=== PATIENT | female | born 1995 | race Caucasian/White ===

== ENCOUNTER 2019-02-25 11:32 | Emergency (ER) | payer MEDICAID ==
[~2019-02-25] VITALS: Ht 170.2 cm; Wt 90.9 kg
[2019-02-25] MEDS ORDERED: SERT50TA12 PO (11:40)
[2019-02-25] MEDS ORDERED: TRAZ-252 PO (11:40)
[2019-02-25 12:25] VITALS: BP 119/71
[2019-02-25] MEDS ORDERED: ACETAMINOPHEN 500 MG TABLET PO ONE (12:45)
== END 2019-02-25 13:22 | disposition home or self-care (01) ==
LOC: EMS 11:33
DX: S06.0X0A Concussion without loss of consciousness, initial encounter (principal); M25.511 Pain in right shoulder; M25.551 Pain in right hip; F41.9 Anxiety disorder, unspecified; F32.9 Major depressive disorder, single episode, unspecified; W01.0XXA Fall on same level from slipping, tripping and stumbling without subsequent striking against object, initial encounter; Y93.89 Activity, other specified; Y92.098 Other place in other non-institutional residence as the place of occurrence of the external cause; Y99.8 Other external cause status

== ENCOUNTER 2019-08-07 18:30 | Inpatient (IN) | payer MEDICAID ==
[~2019-08-07] VITALS: Ht 170.2 cm; Wt 97.0 kg
[~2019-08-07 18:30] MED LIST: SERT50TA12 PO; TRAZ-252 PO
[2019-08-07] MEDS ORDERED: ACETAMINOPHEN 325 MG TABLET PO ONE (18:45)
[2019-08-07] MEDS ORDERED: SODIUM CHLORIDE 0.9% 2,000 ML IV ONE (19:00)
[2019-08-07 19:15] LABS: HEMATOCRIT 33.6 % (36-46); HEMOGLOBIN 11.4 g/dL (12.0-16.0); MEAN CORPUSCULAR HGB CONC 33.8 G/dL (31.0-37.0); MEAN CORPUSCULAR VOLUME 89 fL (80-100); PLATELET COUNT (AUTO) 334 K/uL (150-450); RED BLOOD CELL COUNT(AUTO) 3.79 MIL/uL (4.00-5.20); RED CELL DISTRIBUTION WIDTH 13.6 % (11.5-14.5)
[2019-08-07] MEDS ORDERED: CefTRIAXone 1 GM/DEXTROSE 50 ML IV ONE (19:30)
[2019-08-07] MEDS ORDERED: AZITHROMYCIN 500 MG/NS 250 ML IV ONE (19:30)
[2019-08-07] MEDS ORDERED: VANCOMYCIN HCL 1.5 GM in DEXTROSE 5%-WATER 250 ML IV ONE (19:30)
[2019-08-07] MEDS ORDERED: IOVERSOL 350 MG/ML 100 ML VIAL ONE (19:35)
[2019-08-07] MEDS ORDERED: SODIUM CHLORIDE 0.9% 100 ML ONE (19:35)
[2019-08-07 19:36] LABS: INR 1.1 (0.9-1.1); PROTHROMBIN TIME 11.4 SEC (9.4-11.6)
[2019-08-07 19:37] LABS: INFLUENZA TYPE A NEGATIVE FOR TYPE A (NEGATIVE); INFLUENZA TYPE B NEGATIVE FOR TYPE B (NEGATIVE)
[2019-08-07 19:38] LABS: ANION GAP 11 mmol/L (8-16); CALCIUM, TOTAL 9.2 mg/dL (8.8-10.5); CARBON DIOXIDE 24 mmol/L (22-29); CHLORIDE 100 mmol/L (98-107); CREATININE 0.87 mg/dL (0.60-1.30); GLOMERULAR FILTR. RATE CALC > 60 mL/min (>60); GLUCOSE,RANDOM 121 mg/dL (70-110); POTASSIUM 3.2 mmol/L (3.5-5.1); SODIUM SERUM 135 mmol/L (136-145); UREA NITROGEN, BLOOD 9 mg/dL (7-18)
[2019-08-07 19:57] LABS: BAND NEUTROPHILS % (MANUAL) 7 % (0-5); LYMPHOCYTES % (MANUAL) 3 % (22-44); MONOCYTES % (MANUAL) 3 % (2-9); SEGMENTED NEUTROPHILS % 87 % (40-70)
[2019-08-07] MEDS ORDERED: 0.9% SODIUM CHLORIDE 10 ML SYRINGE IVP PRN (20:00)
[2019-08-07] MEDS ORDERED: ONDANSETRON HCL 4 MG/2 ML VIAL IVP PRN ×2 (20:00→21:45)
[2019-08-07] MEDS ORDERED: ACETAMINOPHEN 325 MG TABLET PO PRN (20:00)
[2019-08-07 20:02] LABS: ALANINE AMINOTRANSFERASE 105 U/L (12-78); ALBUMIN 3.3 g/dL (3.4-5.0); ALKALINE PHOSPHATASE 177 U/L (46-116); ASPARTATE AMINOTRANSFERASE 83 U/L (15-37); BILIRUBIN,TOTAL 2.7 mg/dL (0.1-1.0); CREATINE KINASE, TOTAL ONLY 450 U/L (26-192); HCG,QUANTITATIVE < 1 mIU/mL (0-6); THYROID STIMULATING HORMONE 0.33 uIU/mL (0.36-3.74); TOTAL PROTEIN, SERUM 8.1 g/dL (6.4-8.2)
[2019-08-07] MEDS ORDERED: MethylPREDNISolone SOD SUCC 125 MG/2 ML VIAL IVP ONE (21:00)
[2019-08-07] MEDS ORDERED: SODIUM CHLORIDE 0.9% 2,750 ML IV ONE (21:00)
[2019-08-07] MEDS ORDERED: BISACODYL 10 MG RECTAL RECTAL SUPPOSITORY PR PRN (21:45)
[2019-08-07] MEDS ORDERED: IPRATROPIUM BROMIDE 0.5 MG/2.5 ML NEB SOLUTION NEB PRN ×2 (21:45)
[2019-08-07] MEDS ORDERED: ALBUTEROL SULFATE 2.5 MG/0.5 ML NEB SOLUTION NEB PRN ×2 (21:45)
[2019-08-07] MEDS ORDERED: LEVOFLOXACIN 750 MG/D5% WATER 150 ML IV SCH (21:45)
[2019-08-07] MEDS ORDERED: MAGNESIUM HYDROXIDE SUSPENSION 30 ML UDCUP PO PRN (21:45)
[2019-08-07] MEDS ORDERED: SODIUM CHLORIDE 0.9% 1,000 ML IV ONE (21:45)
[2019-08-07] MEDS ORDERED: MORPHINE SULFATE 2 MG/ML SYRINGE IVP PRN (21:45)
[2019-08-07] MEDS ORDERED: POTASSIUM CHL 10 MEQ/WATER 50 ML IV PRN (23:15)
[2019-08-07] MEDS: POTASSIUM CHLORIDE 20 MEQ ER TABLET PO PRN (23:54)
[2019-08-08] VITALS (7 sets, daily range): BP systolic 105–135; BP diastolic 50–78
[2019-08-08] MEDS: ACETAMINOPHEN 325 MG TABLET PO PRN ×4 (00:05→21:17)
[2019-08-08] MEDS: MethylPREDNISolone SOD SUCC 125 MG/2 ML VIAL IVP SCH ×3 (00:05→11:03)
[2019-08-08] MEDS ORDERED: PNEUMOCOCCAL VACCINE POLYVALENT 0.5 ML VIAL [PPSV23] IM ONE (01:45)
[2019-08-08] MEDS ORDERED: INFLUENZA VIRUS VACCINE QVS 2019-20 (3YR+)/PF 60 MCG/0.5 ML SYRINGE IM ONE (01:45)
[2019-08-08] MEDS: IPRATROPIUM BROMIDE 0.5 MG/2.5 ML NEB SOLUTION NEB SCH ×4 (02:00→20:24)
[2019-08-08] MEDS: ALBUTEROL SULFATE 2.5 MG/0.5 ML NEB SOLUTION NEB SCH ×4 (02:00→20:23)
[2019-08-08] MEDS: LEVOFLOXACIN 750 MG/D5% WATER 150 ML IV SCH ×2 (02:07→23:53)
[2019-08-08 05:11] LABS: APPEARANCE,URINE CLEAR (CLEAR); GLUCOSE, URINE (UA) NEGATIVE (NEGATIVE); KETONES,URINE 15 mg/dL (NEGATIVE); LEUKOCYTE ESTERASE ,URINE NEGATIVE (NEGATIVE); NITRATE,URINE NEGATIVE (NEGATIVE); OCCULT BLOOD,URINE SMALL (NEGATIVE); PROTEIN,URINE POS 1+ (NEGATIVE); UROBILINOGEN,URINE >=8.0 mg/dL (<=1.0)
[2019-08-08 05:14] LABS: BILIRUBIN,URINE PRELIM. POSITIVE (NEGATIVE)
[2019-08-08 05:16] LABS: AMPHET/METH SCREEN,URINE NEGATIVE (NEGATIVE); BARBITURATE SCREEN, URINE NEGATIVE (NEGATIVE); BENZODIAZEPINES SCREEN,URINE NEGATIVE (NEGATIVE); CANNABINOID SCREEN,URINE POSITIVE (NEGATIVE); COCAINE SCREEN,URINE NEGATIVE (NEGATIVE); METHADONE SCREEN, URINE NEGATIVE (NEGATIVE); OPIATE SCREEN,URINE POSITIVE (NEGATIVE)
[2019-08-08 05:17] LABS: PHENCYCLIDINE SCREEN,URINE NEGATIVE (NEGATIVE)
[2019-08-08 05:25] LABS: BACTERIA,URINE None Seen /HPF (None Seen); RBC,URINE 0-2 /HPF (0-2); SQUAMOUS EPITHELIAL CELL,UR Few /LPF (None Seen); WBC,URINE None Seen /HPF (0-5)
[2019-08-08 06:10] LABS: BASOPHILS % (AUTO) 0.2 % (0.0-2.0); EOSINOPHILS % (AUTO) 0 % (1.0-6.0); HEMATOCRIT 30.9 % (36-46); HEMOGLOBIN 10.4 g/dL (12.0-16.0); LYMPHOCYTES # (AUTO) 0.6 K/uL (1.0-4.8); LYMPHOCYTES % (AUTO) 4.2 % (22.0-44.0); MEAN CORPUSCULAR HEMOGLOBIN 29.7 pg (26.0-34.0); MEAN CORPUSCULAR HGB CONC 33.8 G/dL (31.0-37.0); MEAN CORPUSCULAR VOLUME 88 fL (80-100); MONOCYTES # (AUTO) 0.1 K/uL (0.1-1.0); MONOCYTES % (AUTO) 0.9 % (2.0-9.0); NEUTROPHILS # (AUTO) 12.9 K/uL (1.8-7.7); PLATELET COUNT (AUTO) 281 K/uL (150-450); RED BLOOD CELL COUNT(AUTO) 3.51 MIL/uL (4.00-5.20); RED CELL DISTRIBUTION WIDTH 13.3 % (11.5-14.5)
[2019-08-08 06:16] LABS: NEUTROPHILS % (AUTO) 94.7 % (40.0-70.0)
[2019-08-08 07:18] LABS: ALANINE AMINOTRANSFERASE 90 U/L (12-78); ALBUMIN 2.5 g/dL (3.4-5.0); ALKALINE PHOSPHATASE 148 U/L (46-116); ANION GAP 12 mmol/L (8-16); ASPARTATE AMINOTRANSFERASE 66 U/L (15-37); BILIRUBIN,TOTAL 1.4 mg/dL (0.1-1.0); CARBON DIOXIDE 24 mmol/L (22-29); CHLORIDE 103 mmol/L (98-107); CREATININE 0.68 mg/dL (0.60-1.30); GLOMERULAR FILTR. RATE CALC > 60 mL/min (>60); GLUCOSE,RANDOM 132 mg/dL (70-110); POTASSIUM 3.7 mmol/L (3.5-5.1); SODIUM SERUM 139 mmol/L (136-145); TOTAL PROTEIN, SERUM 7.9 g/dL (6.4-8.2); UREA NITROGEN, BLOOD 7 mg/dL (7-18)
[2019-08-08] MEDS: DOCUSATE SODIUM 100 MG CAPSULE PO SCH ×2 (07:58→21:17)
[2019-08-08] MEDS: BENZONATATE 100 MG CAPSULE PO SCH ×3 (07:58→21:17)
[2019-08-08] MEDS: HEPARIN SODIUM,PORCINE 5,000 UNITS/ML VIAL SQ SCH ×4 (07:58→23:53)
[2019-08-08] MEDS: PANTOPRAZOLE SODIUM 40 MG DR TABLET PO SCH (07:58)
[2019-08-08] MEDS: GuaiFENesin SR 600 MG ER TABLET PO SCH ×2 (07:58→21:17)
[2019-08-08] MEDS: HYDROCODONE/ACETAMINOPHEN 5-325 MG TABLET PO PRN ×2 (11:04→17:56)
[2019-08-08 13:36] LABS: ABG A-A DIFF O2 49.4 mmHg (10-20.0); ABG BASE EXCESS -2.2 mmol/L (-2.0-3.0); ABG CARBOXYHEMOGLOBIN 0.4 % (0.0-3.0); ABG METHEMOGLOBIN 0.3 % (0.0-1.5); ABG OXYGEN CONTENT 15.5 mL/dL (15.0-23.0); ABG OXYGEN SATURATION 91.8 % (95.0-98.0); ABG OXYHEMOGLOBIN 91.2 % (94.0-100.0); ABG PCO2 33 mmHg (35-45); ABG PH 7.439 (7.350-7.450); ABG TOTAL HEMOGLOBIN 12.1 G/dL (12.0-18.0); PO2, ARTERIAL BG 60.7 mmHg (80.0-100.0); SOURCE, BLOOD GAS ARTERIAL; TEMPERATURE, FAHRENHEIT, BG 98.6 FAHREN (96.0-98.6)
[2019-08-08 13:37] LABS: O2 DEVICE,BLOOD GAS ROOM AIR (ROOM AIR); SITE, BLOOD GAS RT RADIAL
[2019-08-08] MEDS ORDERED: 0.9% SODIUM CHLORIDE 5 ML NEB SOLUTION NEB ONE (20:13)
[2019-08-08] MEDS: MethylPREDNISolone SOD SUCC 40 MG/ML VIAL IVP SCH (21:17)
[2019-08-08] MEDS ORDERED: SODIUM CHLORIDE 0.9% 500 ML IV ONE (23:51)
[2019-08-09] MEDS: ALBUTEROL SULFATE 2.5 MG/0.5 ML NEB SOLUTION NEB SCH ×4 (02:01→20:22)
[2019-08-09] MEDS: IPRATROPIUM BROMIDE 0.5 MG/2.5 ML NEB SOLUTION NEB SCH ×4 (02:01→20:22)
[2019-08-09] MEDS: ACETAMINOPHEN 325 MG TABLET PO PRN (02:40)
[2019-08-09 04:04] VITALS: BP 129/75
[2019-08-09 06:52] LABS: BASOPHILS % (AUTO) 0.1 % (0.0-2.0); EOSINOPHILS % (AUTO) 0 % (1.0-6.0); HEMATOCRIT 31.6 % (36-46); HEMOGLOBIN 10.6 g/dL (12.0-16.0); LYMPHOCYTES # (AUTO) 1.1 K/uL (1.0-4.8); LYMPHOCYTES % (AUTO) 7.3 % (22.0-44.0); MEAN CORPUSCULAR HEMOGLOBIN 29.6 pg (26.0-34.0); MEAN CORPUSCULAR HGB CONC 33.5 G/dL (31.0-37.0); MEAN CORPUSCULAR VOLUME 89 fL (80-100); MONOCYTES # (AUTO) 0.3 K/uL (0.1-1.0); MONOCYTES % (AUTO) 2.1 % (2.0-9.0); NEUTROPHILS # (AUTO) 13.6 K/uL (1.8-7.7); NEUTROPHILS % (AUTO) 90.5 % (40.0-70.0); PLATELET COUNT (AUTO) 304 K/uL (150-450); RED BLOOD CELL COUNT(AUTO) 3.57 MIL/uL (4.00-5.20); RED CELL DISTRIBUTION WIDTH 13.3 % (11.5-14.5)
[2019-08-09 07:00] LABS: ANION GAP 12 mmol/L (8-16); CALCIUM, TOTAL 9.2 mg/dL (8.8-10.5); CARBON DIOXIDE 24 mmol/L (22-29); CHLORIDE 104 mmol/L (98-107); CREATININE 0.72 mg/dL (0.60-1.30); GLOMERULAR FILTR. RATE CALC > 60 mL/min (>60); GLUCOSE,RANDOM 126 mg/dL (70-110); POTASSIUM 3.3 mmol/L (3.5-5.1); SODIUM SERUM 140 mmol/L (136-145); UREA NITROGEN, BLOOD 12 mg/dL (7-18)
[2019-08-09 07:40] VITALS: BP 123/70
[2019-08-09] MEDS: PANTOPRAZOLE SODIUM 40 MG DR TABLET PO SCH (08:54)
[2019-08-09] MEDS: DOCUSATE SODIUM 100 MG CAPSULE PO SCH ×2 (08:55→20:25)
[2019-08-09] MEDS: MethylPREDNISolone SOD SUCC 40 MG/ML VIAL IVP SCH ×2 (08:55→20:08)
[2019-08-09] MEDS: HYDROCODONE/ACETAMINOPHEN 5-325 MG TABLET PO PRN ×3 (08:55→21:13)
[2019-08-09] MEDS: HEPARIN SODIUM,PORCINE 5,000 UNITS/ML VIAL SQ SCH ×2 (08:55→17:46)
[2019-08-09] MEDS: BENZONATATE 100 MG CAPSULE PO SCH ×3 (08:55→20:08)
[2019-08-09] MEDS: GuaiFENesin SR 600 MG ER TABLET PO SCH ×2 (08:55→21:11)
[2019-08-09 09:55] VITALS: BP 137/88
[2019-08-09 15:28] VITALS: BP 115/69
[2019-08-09] MEDS: POTASSIUM CHLORIDE 20 MEQ ER TABLET PO PRN (17:47)
[2019-08-09 19:54] VITALS: BP 98/61
[2019-08-09] MEDS: ZOLPIDEM TARTRATE 5 MG TABLET PO PRN (20:08)
[2019-08-10] VITALS (7 sets, daily range): BP systolic 112–149; BP diastolic 63–83
[2019-08-10] MEDS ORDERED: SODIUM CHLORIDE 0.9% 250 ML IV ONE (00:04)
[2019-08-10] MEDS: HEPARIN SODIUM,PORCINE 5,000 UNITS/ML VIAL SQ SCH ×4 (00:19→23:26)
[2019-08-10] MEDS: LEVOFLOXACIN 750 MG/D5% WATER 150 ML IV SCH ×2 (00:19→23:27)
[2019-08-10] MEDS: HYDROCODONE/ACETAMINOPHEN 5-325 MG TABLET PO PRN ×5 (02:27→23:27)
[2019-08-10] MEDS: IPRATROPIUM BROMIDE 0.5 MG/2.5 ML NEB SOLUTION NEB SCH ×5 (02:39→22:40)
[2019-08-10] MEDS: ALBUTEROL SULFATE 2.5 MG/0.5 ML NEB SOLUTION NEB SCH ×5 (02:39→22:40)
[2019-08-10 05:45] LABS: BASOPHILS % (AUTO) 0.1 % (0.0-2.0); EOSINOPHILS % (AUTO) 0 % (1.0-6.0); HEMATOCRIT 31.9 % (36-46); HEMOGLOBIN 10.5 g/dL (12.0-16.0); LYMPHOCYTES # (AUTO) 1.3 K/uL (1.0-4.8); LYMPHOCYTES % (AUTO) 13.9 % (22.0-44.0); MEAN CORPUSCULAR HEMOGLOBIN 29.2 pg (26.0-34.0); MEAN CORPUSCULAR HGB CONC 32.9 G/dL (31.0-37.0); MEAN CORPUSCULAR VOLUME 89 fL (80-100); MONOCYTES # (AUTO) 0.3 K/uL (0.1-1.0); NEUTROPHILS # (AUTO) 7.8 K/uL (1.8-7.7); PLATELET COUNT (AUTO) 289 K/uL (150-450); RED CELL DISTRIBUTION WIDTH 13.5 % (11.5-14.5)
[2019-08-10 05:55] LABS: ANION GAP 8 mmol/L (8-16); CARBON DIOXIDE 27 mmol/L (22-29); CHLORIDE 103 mmol/L (98-107); CREATININE 0.66 mg/dL (0.60-1.30); GLOMERULAR FILTR. RATE CALC > 60 mL/min (>60); GLUCOSE,RANDOM 107 mg/dL (70-110); SODIUM SERUM 138 mmol/L (136-145); UREA NITROGEN, BLOOD 13 mg/dL (7-18)
[2019-08-10] MEDS: MethylPREDNISolone SOD SUCC 40 MG/ML VIAL IVP SCH ×2 (08:11→20:10)
[2019-08-10] MEDS: DOCUSATE SODIUM 100 MG CAPSULE PO SCH ×2 (08:12→20:10)
[2019-08-10] MEDS: GuaiFENesin SR 600 MG ER TABLET PO SCH ×2 (08:12→20:10)
[2019-08-10] MEDS: BENZONATATE 100 MG CAPSULE PO SCH ×3 (08:12→20:10)
[2019-08-10] MEDS: PANTOPRAZOLE SODIUM 40 MG DR TABLET PO SCH (08:12)
[2019-08-10] MEDS: ZOLPIDEM TARTRATE 5 MG TABLET PO PRN (23:27)
[2019-08-11] MEDS: IPRATROPIUM BROMIDE 0.5 MG/2.5 ML NEB SOLUTION NEB SCH ×6 (03:00→23:45)
[2019-08-11] MEDS: ALBUTEROL SULFATE 2.5 MG/0.5 ML NEB SOLUTION NEB SCH ×6 (03:00→23:45)
[2019-08-11 05:04] VITALS: BP 136/81
[2019-08-11 05:35] LABS: BASOPHILS % (AUTO) 0.1 % (0.0-2.0); EOSINOPHILS % (AUTO) 0 % (1.0-6.0); HEMATOCRIT 33.4 % (36-46); HEMOGLOBIN 11.2 g/dL (12.0-16.0); LYMPHOCYTES % (AUTO) 12.3 % (22.0-44.0); MEAN CORPUSCULAR HEMOGLOBIN 29.6 pg (26.0-34.0); MEAN CORPUSCULAR HGB CONC 33.4 G/dL (31.0-37.0); MEAN CORPUSCULAR VOLUME 89 fL (80-100); MONOCYTES # (AUTO) 0.2 K/uL (0.1-1.0); MONOCYTES % (AUTO) 2.1 % (2.0-9.0); NEUTROPHILS # (AUTO) 6.7 K/uL (1.8-7.7); PLATELET COUNT (AUTO) 297 K/uL (150-450); RED BLOOD CELL COUNT(AUTO) 3.77 MIL/uL (4.00-5.20); RED CELL DISTRIBUTION WIDTH 13.6 % (11.5-14.5)
[2019-08-11 05:47] LABS: NEUTROPHILS % (AUTO) 85.5 % (40.0-70.0)
[2019-08-11 06:16] LABS: ANION GAP 11 mmol/L (8-16); CALCIUM, TOTAL 8.9 mg/dL (8.8-10.5); CARBON DIOXIDE 27 mmol/L (22-29); CHLORIDE 101 mmol/L (98-107); CREATININE 0.69 mg/dL (0.60-1.30); GLOMERULAR FILTR. RATE CALC > 60 mL/min (>60); GLUCOSE,RANDOM 123 mg/dL (70-110); POTASSIUM 3.6 mmol/L (3.5-5.1); SODIUM SERUM 139 mmol/L (136-145); UREA NITROGEN, BLOOD 12 mg/dL (7-18)
[2019-08-11 07:25] VITALS: BP 123/73
[2019-08-11] MEDS: MethylPREDNISolone SOD SUCC 40 MG/ML VIAL IVP SCH ×2 (07:46→21:09)
[2019-08-11] MEDS: HEPARIN SODIUM,PORCINE 5,000 UNITS/ML VIAL SQ SCH ×3 (07:46→23:34)
[2019-08-11] MEDS: PANTOPRAZOLE SODIUM 40 MG DR TABLET PO SCH (07:46)
[2019-08-11] MEDS: BENZONATATE 100 MG CAPSULE PO SCH ×3 (07:46→20:55)
[2019-08-11] MEDS: GuaiFENesin SR 600 MG ER TABLET PO SCH ×2 (07:47→20:55)
[2019-08-11] MEDS: DOCUSATE SODIUM 100 MG CAPSULE PO SCH ×2 (07:47→20:54)
[2019-08-11 12:08] VITALS: BP 122/62
[2019-08-11 13:08] LABS: LEGIONELLA PNEUMO AG URINE Negative (Negative); ORGANISM ID Not indicated.; S PNEUMO SOURCE Urine; STREP PNEUMONIAE AG URINE Negative (Negative); STREP.PNEUMO BODY FLUID CULT. Not Indicated
[2019-08-11 15:55] VITALS: BP 131/64
[2019-08-11] MEDS: ACETAMINOPHEN 325 MG TABLET PO PRN (19:18)
[2019-08-11 20:44] VITALS: BP 131/76
[2019-08-11] MEDS: HYDROCODONE/ACETAMINOPHEN 5-325 MG TABLET PO PRN (20:55)
[2019-08-11 23:22] VITALS: BP 126/71
[2019-08-11] MEDS: LEVOFLOXACIN 750 MG/D5% WATER 150 ML IV SCH (23:36)
[2019-08-12] MEDS: IPRATROPIUM BROMIDE 0.5 MG/2.5 ML NEB SOLUTION NEB SCH ×4 (03:00→15:00)
[2019-08-12] MEDS: ALBUTEROL SULFATE 2.5 MG/0.5 ML NEB SOLUTION NEB SCH ×4 (03:00→15:00)
[2019-08-12 05:03] VITALS: BP 134/83
[2019-08-12 07:25] LABS: BASOPHILS % (AUTO) 0.1 % (0.0-2.0); EOSINOPHILS % (AUTO) 0 % (1.0-6.0); HEMATOCRIT 37.5 % (36-46); HEMOGLOBIN 12.2 g/dL (12.0-16.0); LYMPHOCYTES % (AUTO) 8.1 % (22.0-44.0); MEAN CORPUSCULAR HEMOGLOBIN 28.9 pg (26.0-34.0); MEAN CORPUSCULAR HGB CONC 32.6 G/dL (31.0-37.0); MEAN CORPUSCULAR VOLUME 89 fL (80-100); MONOCYTES # (AUTO) 0.2 K/uL (0.1-1.0); MONOCYTES % (AUTO) 1.4 % (2.0-9.0); NEUTROPHILS # (AUTO) 10.7 K/uL (1.8-7.7); PLATELET COUNT (AUTO) 330 K/uL (150-450); RED BLOOD CELL COUNT(AUTO) 4.22 MIL/uL (4.00-5.20); RED CELL DISTRIBUTION WIDTH 13.5 % (11.5-14.5)
[2019-08-12 07:32] LABS: NEUTROPHILS % (AUTO) 90.4 % (40.0-70.0)
[2019-08-12 07:45] LABS: ANION GAP 12 mmol/L (8-16); CARBON DIOXIDE 25 mmol/L (22-29); CHLORIDE 102 mmol/L (98-107); CREATININE 0.74 mg/dL (0.60-1.30); GLOMERULAR FILTR. RATE CALC > 60 mL/min (>60); GLUCOSE,RANDOM 122 mg/dL (70-110); POTASSIUM 3.5 mmol/L (3.5-5.1); SODIUM SERUM 139 mmol/L (136-145); UREA NITROGEN, BLOOD 14 mg/dL (7-18)
[2019-08-12] MEDS: GuaiFENesin SR 600 MG ER TABLET PO SCH (08:23)
[2019-08-12] MEDS: ACETAMINOPHEN 325 MG TABLET PO PRN (08:23)
[2019-08-12] MEDS: PANTOPRAZOLE SODIUM 40 MG DR TABLET PO SCH (08:23)
[2019-08-12] MEDS: DOCUSATE SODIUM 100 MG CAPSULE PO SCH (08:23)
[2019-08-12] MEDS: BENZONATATE 100 MG CAPSULE PO SCH (08:23)
[2019-08-12] MEDS: HEPARIN SODIUM,PORCINE 5,000 UNITS/ML VIAL SQ SCH (08:23)
[2019-08-12] MEDS: MethylPREDNISolone SOD SUCC 40 MG/ML VIAL IVP SCH (08:24)
[2019-08-12 08:27] VITALS: BP 99/62
[2019-08-12 11:45] VITALS: BP 116/63
[2019-08-12] MEDS ORDERED: PANT40TA25 PO (12:17)
[2019-08-12] MEDS ORDERED: ME-P40KI PO (12:21)
[2019-08-12] MEDS ORDERED: LEVO500 PO (12:22)
[2019-08-12] MEDS ORDERED: IPRA3AMP24 IH (12:24)
[2019-08-12] MEDS ORDERED: IPRA3AMP24 NEB (12:24)
[2019-08-12] MEDS ORDERED: PredniSONE 20 MG TABLET PO SCH (13:45)
[2019-08-12 15:48] VITALS: BP 138/87
== END 2019-08-12 17:09 | disposition home or self-care (01) | DRG 720 ==
LOC: EMS 18:32 → 5S 20:23 → 4E 08-09 09:49
PROVIDERS: ADMIT Internal Medicine; ATTEND Internal Medicine
DX: A41.9 Sepsis, unspecified organism (principal); J96.91 Respiratory failure, unspecified with hypoxia; M62.82 Rhabdomyolysis; J18.9 Pneumonia, unspecified organism; S27.392A Other injuries of lung, bilateral, initial encounter; D64.9 Anemia, unspecified; E87.6 Hypokalemia; F41.9 Anxiety disorder, unspecified; F32.9 Major depressive disorder, single episode, unspecified; T38.0X5A Adverse effect of glucocorticoids and synthetic analogues, initial encounter; Y92.89 Other specified places as the place of occurrence of the external cause
CPT/HCPCS: 71275; 82805; 83516; 83605; 84145; 84443; 86038; 86225; 86235; 87040; 87430; 87449; 87804; 87899; 93005; 94640; 96365; 99291; G0378; J0456; J0696; J1644; J1956; J2270; J2920; J2930; J3370; J7030; J7040; J7050; J7060

== ENCOUNTER 2020-02-15 20:58 | Emergency (ER) | payer MEDICAID ==
[~2020-02-15] VITALS: Ht 170.2 cm; Wt 68.2 kg
[~2020-02-15 20:58] MED LIST changes: +IPRA3AMP24 IH; +LEVO-72 PO; +ME-P40KI PO; +PANT40TA25 PO; -SERT50TA12 PO; -TRAZ-252 PO
[2020-02-15 22:40] VITALS: BP 125/67
== END 2020-02-15 23:03 | disposition home or self-care (01) ==
LOC: EMS 20:58
DX: H92.02 Otalgia, left ear (principal); F41.9 Anxiety disorder, unspecified; F32.9 Major depressive disorder, single episode, unspecified; R03.0 Elevated blood-pressure reading, without diagnosis of hypertension; Z79.899 Other long term (current) drug therapy

== ENCOUNTER 2025-01-13 19:02 | Emergency (ER) | payer MEDICAID ==
[~2025-01-13] VITALS: Ht 167.6 cm; Wt 160.0 kg
[~2025-01-13 19:02] MED LIST changes: +PANT-31 PO; -PANT40TA25 PO
[2025-01-13 20:08] VITALS: BP 116/64; PULSE 65; RESP 18; TEMP 97.3; O2SAT 98
== END 2025-01-13 21:50 | disposition left against medical advice (07) ==
LOC: EMS 19:02
DX: R10.30 Lower abdominal pain, unspecified (principal); Z53.21 Procedure and treatment not carried out due to patient leaving prior to being seen by health care provider